=== PATIENT | female | born 1965 | race Hispanic/Latino ===

== ENCOUNTER 2018-01-01 08:01 | Day surgery (SDC) | payer BC ==
[2017-12-28 09:40] VITALS: BMI 28.5
[2018-01-01 09:04] LABS: BASO # 0.01 K/mm3 (0.0-2.0); BASO % 0.2 % (0.0-3.0); EOS # 0.1 (0.0-0.7); EOS % 1.6 % (1.5-5.0); GRAN # 2.73 (1.4-6.5); GRAN % 63.1 % (50.0-68.0); HEMOGLOBIN 13.4 g/dL (12.0-16.0); LYMPH # 1.3 (1.2-3.4); LYMPH % 28.9 % (22.0-35.0); MEAN CELL VOLUME 90.8 fl (80.0-105.0); MEAN CORPUSCULAR HEMOGLOBIN 30.9 pg (25.0-35.0); MEAN CORPUSCULAR HGB CONC 34.1 g/dl (31.0-37.0); MONO # 0.3 (0.1-0.6); MONO % 6.2 % (1.0-6.0); RBC 4.33 10^6/uL (3.5-6.1); RED CELL DISTRIBUTION WIDTH 12.3 % (11.5-14.5); WHITE BLOOD COUNT 4.3 10^3/ul (4.5-11.0)
--- NOTE | 2018-01-01 09:13 | HP ---
REASON FOR ADMISSION: Implantation of loop recorder Reveal. HISTORY OF PRESENT ILLNESS: This is a 52-year-old female with past medical history significant for hypothyroidism and hyperlipidemia, who had recurrent syncope twice and kept on passing out. Patient states that she feels very funny sensation in the chest, and then palpitations and feels the tingling sensation in both feet and hand, then pass out. Last time it happened without tingling sensation in the hand and feet, and patient passed out without noticed . PAST MEDICAL HISTORY: Significant for hypothyroidism and hyperlipidemia. PREVIOUS CARDIAC WORKUP: As follows, patient had echocardiography on 12/05/2017 that showed ejection fraction of 80%, trace aortic regurgitation, trace pulmonary insufficiency, mild mitral regurgitation and mild tricuspid regurgitation, RV systolic pressure 36. Patient had a stress test dated 12/05/2017, treadmill time, decrease in functional capacity, negative for ischemia. Bilateral carotid 10% to 19% stenosis noted. Bilateral carotid dated 12/05/2017. Holter monitor dated 11/04/2017 showed a normal sinus, no arrhythmia noted, lowest heart rate 53, maximum heart rate 134, average heart rate 78. Patient remained asymptomatic while wearing the Holter. SOCIAL HISTORY: Denies any history of smoking. Denies any history of alcohol abuse. CURRENT MEDICATIONS: Patient is taking at home ranitidine 150 mg daily, meloxicam Mobic 15 mg daily, acetaminophen for arthritis, Crestor 5 mg daily, levothyroxine 25 mcg daily, aspirin 81 mg daily. REVIEW OF SYSTEMS: As per HPI. PHYSICAL EXAMINATION: VITAL SIGNS: Height of the patient 5 feet 2 inches, weight of the patient is 156 pounds, body mass index 28.5 kg/m2. Rest of the examination as follows; heart rate 60, blood pressure 110/70. HEENT: PERRLA. Extraocular muscles intact. NECK: Supple. No carotid bruits or thyromegaly. CHEST: Clear to auscultation. HEART: S1 and S2 regular. ABDOMEN: Soft. EXTREMITIES: Clubbing and cyanosis negative. IMPRESSION: Recurrent syncope, hypothyroidism, hyperlipidemia. Negative noninvasive cardiac workup including echo shows ejection fraction 80%, trace aortic regurgitation, trace pulmonary insufficiency, mild mitral regurgitation, mild tricuspid regurgitation, right ventricular systolic pressure 36, negative stress test, no reversible ischemia, dated 12/05/2017. Bilateral carotid dated 12/05/2017, 10% to 19% stenosis. Holter dated 11/04/2017, normal sinus, no arrhythmia noted, maximum heart rate 134, minimum heart rate 53, average heart rate 78. RECOMMENDATION: In view of recurrent syncope, will have to loop recorder. Further recommendation after loop recorder. We will follow with you. Thank you for providing us the opportunity in taking care of the patient, Otilia Pruett. Haseeb Melgar MD
[2018-01-01 09:14] LABS: BLOOD UREA NITROGEN 23 mg/dL (7-21); CALCIUM 9.9 mg/dL (8.4-10.5); GFR AFRICAN-AMERICAN > 60; GFR NON-AFRICAN AMERICAN > 60; HDL CHOLESTEROL 68 mg/dL (29-60)
[2018-01-01 09:23] VITALS: RESP 18
[2018-01-01 09:25] LABS: INR 1.1 (0.93-1.08); LDL CHOLESTEROL 51 mg/dL (0-129); PARTIAL THROMBOPLASTIN TIME 32.5 Seconds (25.1-36.5); PROTHROMBIN TIME 12.7 SECONDS (9.4-12.5)
[2018-01-01] MEDS ORDERED: Lidocaine 2% Inj (20ml) ONE (11:21)
--- NOTE | 2018-01-01 12:11 | CPOSTOP ---
DATE: 01/01/2018 CARDIOVASCULAR LAB POST PROCEDURE NOTE DICTATING PHYSICIAN: Haseeb Melgar MD VINEGAR MAKER: Nicole lens coating technician. TYPE OF ANESTHESIA: None. PRE-PROCEDURE DIAGNOSIS: Recurrent syncope. PROCEDURE PERFORMED: Loop recorder implantation (Reveal ( Linq) [employer]). FINDINGS: Loop recorder implanted. FINAL DIAGNOSIS: Recurrent syncope. POST PROCEDURE CONDITION: Stable. VASCULAR ACCESS SITE: Left side of the chest. CLOSURE DEVICE: Dermabond applied. RADIATION DOSE: No radiation used. FLUORO TIME: No fluoro used. Haseeb Melgar MD MTDD
[2018-01-01 12:12] VITALS: BP 122/81; PULSE 70; TEMP 97.8; O2SAT 100
--- NOTE | 2018-01-02 08:50 | CARDCATH ---
PROCEDURE DATE: 01/01/2018 PROCEDURE: Implantation of loop recorder. CONSTRUCTION OPERATIONS MANAGER: Haseeb Melgar MD HAIR WEAVER: Nicole, surgery technician. SCHEDULING: Elective. BRIEF CLINICAL HISTORY: This is a 52-year-old female with past medical history significant for hypothyroidism and hyperlipidemia, who had recurrent syncope twice and passed out and feel funny sensation in the chest, and then feel funny sensation in both legs and then pass out. So far negative workup including a stress test, echo and Holter. Patient is scheduled today for placement of a loop recorder implant LINQ for evaluation of arrhythmia. INDICATION FOR PROCEDURE: Recurrent syncope, rule out sick sinus syndrome, rule out tachybrady syndrome. DESCRIPTION OF PROCEDURE: The patient was brought to the lab specialist, draped in a sterile standard fashion, left side of the chest at fourth intercostal space 1.5 cm away from midline. A 2% lidocaine was given and then with a [employer] knife #[id number], make a little dee dee and then loop recorder pocket was created and loop recorder was injected, [employer] LINQ and the puncture site was closed with a Dermabond. The patient tolerated the procedure well and returned to the floor in stable condition. Arrangement has been made for follow up with us at [facility], also education was given to the patient and the daughter who has accompanied the patient for capturing if symptoms occur. Thank you, Dr. Millard for providing us the opportunity in taking care of the patient, Otilia Pruett. Haseeb Melgar MD cc: Dr. Gonzales. MTDD
== END 2018-01-01 13:20 | disposition home or self-care (01) ==
LOC: CATH 08:01
PROVIDERS: ATTEND Internal Medicine Cardiovascular Disease
DX: R55 Syncope and collapse (principal); I08.3 Combined rheumatic disorders of mitral, aortic and tricuspid valves; E78.5 Hyperlipidemia, unspecified; E03.9 Hypothyroidism, unspecified; Z79.82 Long term (current) use of aspirin
CPT/HCPCS: 33282; 36415; 80048; 80061; 85025; 85610; 85730; 86850; 86900; C1764; J7040